=== PATIENT | female | born 1950 | race Caucasian/White ===

== ENCOUNTER 2024-06-03 10:13 | Inpatient (IN) ==
[2024-06-03] MEDS: Lactated Ringers 1000 ml BAG IV.FLUID IV ONE (10:39)
[2024-06-03 10:52] LABS: INR 1.01 (0.85-1.14)
[2024-06-03 10:59] LABS: Hematocrit 42.6 % (35-45); Hemoglobin 14.5 g/dL (11.5-14.3); Mean Corpuscular Hgb Conc 33.9 g/dL (31-36); Mean Corpuscular Volume 88.3 fL (80-97); Red Blood Count 4.83 10^6/uL (3.63-4.92); Red Cell Distribution Width 13.6 % (12-17)
[2024-06-03 11:12] LABS: High Sens Troponin Baseline 23 pg/mL (<15)
[2024-06-03 11:41] LABS: ABS Eosinophils 0.1 10^3/uL (0.0-0.5); ABS Lymphocytes 1.6 10^3/uL (1.0-4.8); ABS Monocytes 0.4 10^3/uL (0.0-0.9); ABS Neutrophils 3.9 10^3/uL (1.5-7.6); ABS Nucleated RBC 0.01 10^3/ul; Eosinophil % 1.2 %; Lymphocyte % 26.5 %; Mean Platelet Volume 9.2 fL (7.5-11.2); Nucleated Red Blood Cells % 0.1 %/100WBC (0.0-0.8); Platelet Count 217 10^3/uL (150-450)
[2024-06-03 11:46] LABS: ALT 20 U/L (7-52); Albumin 4.5 g/dL (3.5-5.7); Albumin/Globulin Ratio 1.9 (1-3); Alkaline Phosphatase 65 U/L (35-149); Anion Gap 10 mmol/L (2-16); Blood Urea Nitrogen 18 mg/dL (6-24); CO2 Carbon Dioxide 26 mmol/L (22-32); Calcium 10.6 mg/dL (8.6-10.3); Chloride 102 mmol/L (101-111); Creatinine, Serum 1.07 mg/dL (0.51-0.95); Globulin 2.4 g/dL (2-4); Glucose 117 mg/dL (70-100); Sodium 138 mmol/L (135-145); Total Bilirubin 1.6 mg/dL (0.2-1.0); Total Protein 6.9 g/dL (6.4-8.9); eGFR CKD-EPI 55.5 (>60)
[2024-06-03 12:15] LABS: High Sensitivity Troponin 1 Hr 19 pg/mL (<15)
[2024-06-03 12:53] LABS: Magnesium 1.7 mg/dL (1.9-2.7)
[2024-06-03] MEDS: Magnesium Sulfate 2 gm BAG 2 GM/50 ML BAG IVPB ONE (13:08)
[2024-06-03] MEDS: Iodixanol 320 (CONTRAST) 100 ML SDV IV ONE (14:54)
[2024-06-03 19:08] LABS: TSH Ultra Thyroid Stim Horm 1.65 mcIU/mL (0.34-5.60)
[2024-06-04 05:55] LABS: ABS Eosinophils 0.1 10^3/uL (0.0-0.5); ABS Lymphocytes 1.3 10^3/uL (1.0-4.8); ABS Monocytes 0.5 10^3/uL (0.0-0.9); ABS Neutrophils 2.9 10^3/uL (1.5-7.6); ABS Nucleated RBC 0.01 10^3/ul; Eosinophil % 2.9 %; Hematocrit 36.7 % (35-45); Hemoglobin 12.3 g/dL (11.5-14.3); Lymphocyte % 27.2 %; Mean Corpuscular Hgb Conc 33.6 g/dL (31-36); Mean Corpuscular Volume 89.3 fL (80-97); Nucleated Red Blood Cells % 0.2 %/100WBC (0.0-0.8); Platelet Count 182 10^3/uL (150-450); Red Blood Count 4.11 10^6/uL (3.63-4.92); Red Cell Distribution Width 13.5 % (12-17); White Blood Count 4.8 10^3/uL (3.8-11.8)
[2024-06-04 07:07] LABS: Anion Gap 9 mmol/L (2-16); Blood Urea Nitrogen 19 mg/dL (6-24); CO2 Carbon Dioxide 23 mmol/L (22-32); Calcium 8.7 mg/dL (8.6-10.3); Chloride 107 mmol/L (101-111); Creatinine, Serum 0.95 mg/dL (0.51-0.95); Glucose 104 mg/dL (70-100); Sodium 139 mmol/L (135-145); eGFR CKD-EPI 64.1 (>60)
[2024-06-04 07:19] VITALS: BP 110/60
[2024-06-04 09:06] LABS: Phosphorus 4.9 mg/dL (2.5-5.0); Potassium Redraw 4.5 mmol/L (3.5-5.0)
[2024-06-04 09:44] LABS: Magnesium 2.1 mg/dL (1.9-2.7)
== END 2024-06-04 12:00 | disposition home or self-care (01) | DRG 310 ==
LOC: ED 10:13 → EDHOLD 16:51 → ICU 17:57
PROVIDERS: ADMIT Internal Medicine; ATTEND Internal Medicine